=== PATIENT | male | born 1995 | race African-American/Black ===

== ENCOUNTER 2023-06-17 17:02 | Emergency (ER) | payer MEDICAID ==
[~2023-06-17] VITALS: Ht 177.8 cm; Wt 118.0 kg
[2023-06-17 17:05] VITALS: O2SAT 98
[2023-06-17] MEDS: KETOROLAC 60MG/2ML VIAL IM ONE (17:36)
[2023-06-17] MEDS: OLANZAPINE 10MG TABLET PO SCH (17:37)
[2023-06-17 18:39] LABS: BASOPHILS % 0.4 % (0.0-2.0); EOSINOPHILS % 0.4 % (0.0-5.0); HEMATOCRIT. 45.2 % (42.0-52.0); HEMOGLOBIN. 15.6 g/dL (14.0-18.0); LYMPHOCYTES % 10.4 % (20.0-50.0); MEAN CORPUSCULAR HEMOGLOBIN 29.9 pg (28.0-32.0); MEAN CORPUSCULAR HGB CONC 34.6 g/dL (31.0-37.0); MEAN CORPUSCULAR VOLUME 86.4 fL (80.0-94.0); MEAN PLATELET VOLUME 8.7 fl (7.4-10.4); MONOCYTES % 9.9 % (2.0-8.0); NEUTROPHILS % 78.9 % (40.0-76.0); PLATELET 269 x1000/uL (130-400); RED BLOOD CELL COUNT 5.23 mill/uL (4.7-6.1); RED CELL DISTRIBUTION WIDTH 14.3 % (11.6-14.6); WHITE BLOOD COUNT 19.3 x1000/uL (4.5-11.0)
[2023-06-17 19:03] LABS: ACETAMINOPHEN < 2 ug/mL (10-30); ALANINE AMINOTRANSFERASE 75 IU/L (10-49); ALBUMIN 5.8 g/dL (3.2-4.8); ASPARTATE AMINOTRANSFERASE 331 IU/L (<34); BILIRUBIN TOTAL 1.3 mg/dL (0.1-1.0); CALCIUM 10.3 mg/dL (8.7-10.4); CARBON DIOXIDE 24 mEq/L (21-32); CHLORIDE 96 mEq/L (98-107); CREATININE 2.9 mg/dL (0.6-1.3); ETHANOL BLOOD < 10 mg/dL (<10); GLUCOSE 101 mg/dL (70-105); POTASSIUM 3.6 mEq/L (3.5-5.1); PROTEIN TOTAL 9.3 g/dL (6.0-8.3); SODIUM 131 mEq/L (136-145); UREA NITROGEN BLOOD 32 mg/dL (9-23)
[2023-06-17] MEDS: ZIPRASIDONE MESYLATE 20MG/VIAL IM ONE (21:30)
[2023-06-17 23:38] LABS: CLARITY URINE TURBID (CLEAR); COLOR URINE DARK YELLOW (YELLOW); GLUCOSE URINE NEGATIVE (NEGATIVE); KETONES URINE TRACE (NEGATIVE); LEUKOCYTE ESTERASE URINE TRACE (NEGATIVE); NITRITE URINE NEGATIVE (NEGATIVE); OCCULT BLOOD URINE 3+ (NEGATIVE); PH URINE 5.5 (4.5-8.0); PROTEIN URINE 2+ (NEGATIVE); SPECIFIC GRAVITY URINE 1.032 (1.005-1.030)
[2023-06-17 23:49] LABS: *AMPHETAMINES SCREEN URINE PRESUMPTIVE POSITIVE (NEGATIVE); *BARBITURATES SCREEN URINE NEGATIVE (NEGATIVE); *BENZODIAZEPINES SCREEN URINE NEGATIVE (NEGATIVE); *COCAINE SCREEN URINE NEGATIVE (NEGATIVE); CANNABINOID URINE SCREEN PRESUMPTIVE POSITIVE (NEGATIVE); ECSTASY MDMA SCREEN URINE CONF.TEST INDICATED (NEGATIVE); METHADONE URINE SCREEN Neg (NEGATIVE); OPIATES URINE SCREEN NEGATIVE (NEGATIVE); PHENCYCLIDINE URINE SCREEN NEGATIVE (NEGATIVE)
[2023-06-18 00:07] LABS: BACTERIA URINE 1+; SQUAMOUS EPITHELIAL CELL URINE 1+ /lpf (RARE/1+)
[2023-06-18] MEDS: SODIUM CHLORIDE 0.9% 1,000 ML IV ONE (01:14)
[2023-06-18] MEDS: CEFTRIAXONE 1GM/50ML 50 ML IV ONE (01:28)
[2023-06-18 06:24] VITALS: TEMP 98.2
[2023-06-18 07:40] LABS: BASOPHILS % 0.5 % (0.0-2.0); EOSINOPHILS % 0.9 % (0.0-5.0); HEMATOCRIT. 41.5 % (42.0-52.0); HEMOGLOBIN. 14.2 g/dL (14.0-18.0); LYMPHOCYTES % 18.2 % (20.0-50.0); MEAN CORPUSCULAR HEMOGLOBIN 29.9 pg (28.0-32.0); MEAN CORPUSCULAR HGB CONC 34.1 g/dL (31.0-37.0); MEAN CORPUSCULAR VOLUME 87.7 fL (80.0-94.0); MEAN PLATELET VOLUME 8.5 fl (7.4-10.4); MONOCYTES % 11.8 % (2.0-8.0); NEUTROPHILS % 68.6 % (40.0-76.0); PLATELET 218 x1000/uL (130-400); RED BLOOD CELL COUNT 4.74 mill/uL (4.7-6.1); RED CELL DISTRIBUTION WIDTH 14.5 % (11.6-14.6); WHITE BLOOD COUNT 10.5 x1000/uL (4.5-11.0)
[2023-06-18 08:07] LABS: ALANINE AMINOTRANSFERASE 72 IU/L (10-49); ASPARTATE AMINOTRANSFERASE 293 IU/L (<34); BILIRUBIN TOTAL 1.2 mg/dL (0.1-1.0); CALCIUM 9.2 mg/dL (8.7-10.4); CARBON DIOXIDE 26 mEq/L (21-32); CHLORIDE 101 mEq/L (98-107); CREATININE 1.7 mg/dL (0.6-1.3); GLUCOSE 94 mg/dL (70-105); POTASSIUM 3.4 mEq/L (3.5-5.1); PROTEIN TOTAL 7.9 g/dL (6.0-8.3); SODIUM 134 mEq/L (136-145); UREA NITROGEN BLOOD 29 mg/dL (9-23)
[2023-06-18] MEDS: ARIPIPRAZOLE 5MG TABLET PO SCH (11:40)
[2023-06-18 19:09] VITALS: BP 119/78; PULSE 97; RESP 16
[2023-06-18] MEDS ORDERED: OLANZAPINE 5MG TABLET ODT PO SCH (21:00)
== END 2023-06-18 19:33 ==
LOC: ER 17:02
DX: S00.31XA Abrasion of nose, initial encounter (principal); F23 Brief psychotic disorder; F31.9 Bipolar disorder, unspecified; Z20.822 Contact with and (suspected) exposure to COVID-19; X58.XXXA Exposure to other specified factors, initial encounter; Y93.89 Activity, other specified; Y92.89 Other specified places as the place of occurrence of the external cause; Y99.8 Other external cause status
CPT/HCPCS: 80053 ×2; 80305; 81003; 80307; 80329; 80320; 85025 ×2; 36415 ×2; 96372; 99285; 87426; 96365; J1885; J3486; Z7610 ×3; J0696; J7030; G0480

== ENCOUNTER 2023-09-04 17:28 | Emergency (ER) | payer MEDICAID ==
[~2023-09-04] VITALS: Ht 188 cm; Wt 137.0 kg
[2023-09-04] MEDS: MIDAZOLAM HCL 2 MG/2 ML VIAL IM ONE (17:58)
[2023-09-04] MEDS: HALOPERIDOL LACTATE 5MG/ML VIAL IM ONE (17:58)
[2023-09-04 18:45] VITALS: O2SAT 98
[2023-09-04 18:47] LABS: HEMATOCRIT. 42.3 % (42.0-52.0); HEMOGLOBIN. 14.5 g/dL (14.0-18.0); MEAN CORPUSCULAR HEMOGLOBIN 30.1 pg (28.0-32.0); MEAN CORPUSCULAR HGB CONC 34.3 g/dL (31.0-37.0); MEAN CORPUSCULAR VOLUME 87.7 fL (80.0-94.0); MEAN PLATELET VOLUME 8.5 fl (7.4-10.4); PLATELET 294 x1000/uL (130-400); RED BLOOD CELL COUNT 4.83 mill/uL (4.7-6.1); RED CELL DISTRIBUTION WIDTH 14.9 % (11.6-14.6); WHITE BLOOD COUNT 13.7 x1000/uL (4.5-11.0)
[2023-09-04 18:48] LABS: DIFFERENTIAL COMMENT 1
[2023-09-04 18:57] LABS: CHLORIDE 100 mEq/L (98-107); POTASSIUM 3.4 mEq/L (3.5-5.1); SODIUM 138 mEq/L (136-145)
[2023-09-04 18:58] LABS: CALCIUM 10.1 mg/dL (8.7-10.4); CARBON DIOXIDE 26 mEq/L (21-32)
[2023-09-04 19:03] LABS: CREATININE 1.8 mg/dL (0.6-1.3); GLUCOSE 109 mg/dL (70-105); UREA NITROGEN BLOOD 31 mg/dL (9-23)
[2023-09-04 19:04] LABS: ETHANOL BLOOD < 10 mg/dL (<10)
[2023-09-04 19:05] LABS: ACETAMINOPHEN < 2 ug/mL (10-30)
[2023-09-04] MEDS: TETANUS, DIPHTHERIA, PERTUSSIS VAC/PF 0.5ML (>10YR OLD) IM ONE (19:17)
[2023-09-04 19:24] LABS: ANISOCYTOSIS 1+; PLATELET ESTIMATE NORMAL
[2023-09-04 21:49] LABS: CLARITY URINE CLOUDY (CLEAR); COLOR URINE YELLOW (YELLOW); GLUCOSE URINE NEGATIVE (NEGATIVE); KETONES URINE 1+ (NEGATIVE); LEUKOCYTE ESTERASE URINE NEGATIVE (NEGATIVE); NITRITE URINE NEGATIVE (NEGATIVE); OCCULT BLOOD URINE NEGATIVE (NEGATIVE); PROTEIN URINE 1+ (NEGATIVE); SPECIFIC GRAVITY URINE 1.029 (1.005-1.030); UROBILINOGEN URINE 0.2 E.U./dL (0.2-1.0)
[2023-09-04 22:02] LABS: *AMPHETAMINES SCREEN URINE PRESUMPTIVE POSITIVE (NEGATIVE); *BARBITURATES SCREEN URINE NEGATIVE (NEGATIVE); *BENZODIAZEPINES SCREEN URINE PRESUMPTIVE POSITIVE (NEGATIVE); *COCAINE SCREEN URINE NEGATIVE (NEGATIVE); CANNABINOID URINE SCREEN NEGATIVE (NEGATIVE); ECSTASY MDMA SCREEN URINE CONF.TEST INDICATED (NEGATIVE); METHADONE URINE SCREEN NEGATIVE (NEGATIVE); OPIATES URINE SCREEN NEGATIVE (NEGATIVE); PHENCYCLIDINE URINE SCREEN NEGATIVE (NEGATIVE)
[2023-09-04 22:31] LABS: BACTERIA URINE 2+; RBC URINE 0-2 /hpf (0-2); SQUAMOUS EPITHELIAL CELL URINE FEW /lpf (RARE/1+); WBC URINE 0-2 /hpf (0-2)
[2023-09-04 22:32] LABS: HYALINE CASTS URINE 0-5 /lpf
[2023-09-05] MEDS: SULFAMETHOXAZOLE/TRIMETHOPRIM 800/160MG TABLET PO SCH (02:00)
[2023-09-05] MEDS: CEPHALEXIN 250MG CAPSULE PO SCH ×2 (02:00→08:51)
[2023-09-05] MEDS ORDERED: CEPHALEXIN 250MG CAPSULE PO SCH (06:30)
[2023-09-05 13:45] VITALS: BP 124/80; PULSE 72; RESP 18; TEMP 98
== END 2023-09-05 13:55 | disposition home or self-care (01) ==
LOC: ER 17:28
DX: S09.90XA Unspecified injury of head, initial encounter (principal); R45.1 Restlessness and agitation; F31.9 Bipolar disorder, unspecified; F20.9 Schizophrenia, unspecified; X58.XXXA Exposure to other specified factors, initial encounter; Y93.89 Activity, other specified; Y92.89 Other specified places as the place of occurrence of the external cause; Y99.8 Other external cause status; Z20.822 Contact with and (suspected) exposure to COVID-19
CPT/HCPCS: 80305; 80048; 81003; 80307; 80329; 80320; 85025; 36415; 70450; 90715; 20520; 90471; 96372; 99291; 87426; 73140; J1630; J2250; Z7610 ×3; G0480

== ENCOUNTER 2023-09-16 15:08 | Emergency (ER) | payer MEDICAID ==
[~2023-09-16] VITALS: Ht 182.9 cm; Wt 120.0 kg
[2023-09-16] MEDS: SODIUM CHLORIDE 0.9% 1,000 ML IV ONE (15:15)
[2023-09-16 16:38] LABS: BASOPHILS % 0.7 % (0.0-2.0); EOSINOPHILS % 0.2 % (0.0-5.0); HEMATOCRIT. 41.2 % (42.0-52.0); HEMOGLOBIN. 14.2 g/dL (14.0-18.0); LYMPHOCYTES % 10.8 % (20.0-50.0); MEAN CORPUSCULAR HEMOGLOBIN 30.3 pg (28.0-32.0); MEAN CORPUSCULAR HGB CONC 34.4 g/dL (31.0-37.0); MEAN CORPUSCULAR VOLUME 88.1 fL (80.0-94.0); MONOCYTES % 9.1 % (2.0-8.0); NEUTROPHILS % 79.2 % (40.0-76.0); PLATELET 320 x1000/uL (130-400); RED BLOOD CELL COUNT 4.68 mill/uL (4.7-6.1); RED CELL DISTRIBUTION WIDTH 14.5 % (11.6-14.6); WHITE BLOOD COUNT 13.4 x1000/uL (4.5-11.0)
[2023-09-16 16:41] LABS: CHLORIDE 99 mEq/L (98-107); POTASSIUM 3.4 mEq/L (3.5-5.1); SODIUM 138 mEq/L (136-145)
[2023-09-16 16:42] LABS: CALCIUM 10.1 mg/dL (8.7-10.4); CARBON DIOXIDE 24 mEq/L (21-32)
[2023-09-16] MEDS: HALOPERIDOL LACTATE 5MG/ML VIAL IM ONE (16:43)
[2023-09-16 16:47] LABS: CREATININE 1.6 mg/dL (0.6-1.3); GLUCOSE 75 mg/dL (70-105); UREA NITROGEN BLOOD 20 mg/dL (9-23)
[2023-09-16 16:55] LABS: PROTHROMBIN TIME 10.8 sec (9.6-11.0)
[2023-09-16 16:56] LABS: ETHANOL BLOOD < 10 mg/dL (<10)
[2023-09-16] MEDS: DIPHENHYDRAMINE 50MG/ML VIAL IV ONE (18:43)
[2023-09-16 19:23] VITALS: O2SAT 97
[2023-09-17] MEDS: ZIPRASIDONE MESYLATE 20MG/VIAL IM ONE (01:45)
[2023-09-17] MEDS: DIPHENHYDRAMINE 50MG/ML VIAL IM PRN (05:21)
[2023-09-17 09:55] LABS: CLARITY URINE TURBID (CLEAR); COLOR URINE YELLOW (YELLOW); GLUCOSE URINE NEGATIVE (NEGATIVE); KETONES URINE 1+ (NEGATIVE); LEUKOCYTE ESTERASE URINE NEGATIVE (NEGATIVE); NITRITE URINE NEGATIVE (NEGATIVE); OCCULT BLOOD URINE NEGATIVE (NEGATIVE); PH URINE 5.5 (4.5-8.0); PROTEIN URINE TRACE (NEGATIVE); SPECIFIC GRAVITY URINE 1.026 (1.005-1.030)
[2023-09-17 10:50] LABS: BACTERIA URINE 2+; MUCUS URINE TRACE /lpf (NONE/TRACE); RBC URINE 0-2 /hpf (0-2); SQUAMOUS EPITHELIAL CELL URINE NONE SEEN /lpf (RARE/1+); WBC URINE 0-2 /hpf (0-2); YEAST URINE NONE SEEN
[2023-09-17 10:51] LABS: HYALINE CASTS URINE 0-5 /lpf
[2023-09-17 11:21] LABS: *AMPHETAMINES SCREEN URINE PRESUMPTIVE POSITIVE (NEGATIVE)
[2023-09-17 11:22] LABS: *BARBITURATES SCREEN URINE NEGATIVE (NEGATIVE); *BENZODIAZEPINES SCREEN URINE PRESUMPTIVE POSITIVE (NEGATIVE); *COCAINE SCREEN URINE NEGATIVE (NEGATIVE); METHADONE URINE SCREEN NEGATIVE (NEGATIVE); OPIATES URINE SCREEN NEGATIVE (NEGATIVE)
[2023-09-17 11:23] LABS: CANNABINOID URINE SCREEN NEGATIVE (NEGATIVE); ECSTASY MDMA SCREEN URINE CONF.TEST INDICATED (NEGATIVE); PHENCYCLIDINE URINE SCREEN NEGATIVE (NEGATIVE)
[2023-09-17] MEDS: OLANZAPINE 5MG TABLET ODT PO SCH (15:29)
[2023-09-18 00:56] VITALS: BP 120/76; PULSE 104; RESP 20; TEMP 99.8
[2023-11-15] MEDS ORDERED: OLAN5TAB6 PO (15:16)
== END 2023-09-18 01:15 ==
LOC: ER 15:08
DX: R45.1 Restlessness and agitation (principal); I49.9 Cardiac arrhythmia, unspecified; Z86.59 Personal history of other mental and behavioral disorders
CPT/HCPCS: 80305; 80048; 81003; 80320; 85025; 85610; 36415; 93005; 96372 ×2; 96374; 99285; 87426; J1200 ×2; J1630; J7030; J3486; G0480

== ENCOUNTER 2023-10-07 15:28 | Emergency (ER) | payer MEDICAID ==
[~2023-10-07] VITALS: Ht 177.8 cm; Wt 98.0 kg
[2023-10-07 15:31] VITALS: O2SAT 97
[2023-10-07] MEDS: SODIUM CHLORIDE 0.9% 1,000 ML IV ONE (17:17)
[2023-10-07 17:30] LABS: BASOPHILS % 0.7 % (0.0-2.0); EOSINOPHILS % 0.3 % (0.0-5.0); HEMATOCRIT. 37.5 % (42.0-52.0); HEMOGLOBIN. 12.5 g/dL (14.0-18.0); LYMPHOCYTES % 12.5 % (20.0-50.0); MEAN CORPUSCULAR HEMOGLOBIN 30.2 pg (28.0-32.0); MEAN CORPUSCULAR HGB CONC 33.4 g/dL (31.0-37.0); MEAN CORPUSCULAR VOLUME 90.3 fL (80.0-94.0); MEAN PLATELET VOLUME 8.7 fl (7.4-10.4); MONOCYTES % 6.2 % (2.0-8.0); NEUTROPHILS % 80.3 % (40.0-76.0); PLATELET 235 x1000/uL (130-400); RED BLOOD CELL COUNT 4.15 mill/uL (4.7-6.1); WHITE BLOOD COUNT 11.2 x1000/uL (4.5-11.0)
[2023-10-07 17:37] LABS: CHLORIDE 106 mEq/L (98-107); POTASSIUM 3.6 mEq/L (3.5-5.1); SODIUM 142 mEq/L (136-145)
[2023-10-07 17:38] LABS: CALCIUM 8.8 mg/dL (8.7-10.4); CARBON DIOXIDE 30 mEq/L (21-32)
[2023-10-07 17:43] LABS: GLUCOSE 82 mg/dL (70-105); UREA NITROGEN BLOOD 13 mg/dL (9-23)
[2023-10-07 17:44] LABS: ALANINE AMINOTRANSFERASE 14 IU/L (10-49)
[2023-10-07 17:45] LABS: ACETAMINOPHEN < 2 ug/mL (10-30); ALBUMIN 3.9 g/dL (3.2-4.8); ASPARTATE AMINOTRANSFERASE 19 IU/L (<34); BILIRUBIN TOTAL 0.2 mg/dL (0.1-1.0); PROTEIN TOTAL 6.2 g/dL (6.0-8.3)
[2023-10-07 17:48] LABS: ETHANOL BLOOD < 10 mg/dL (<10)
[2023-10-07 20:06] LABS: CLARITY URINE CLEAR (CLEAR); COLOR URINE YELLOW (YELLOW); GLUCOSE URINE NEGATIVE (NEGATIVE); KETONES URINE NEGATIVE (NEGATIVE); LEUKOCYTE ESTERASE URINE NEGATIVE (NEGATIVE); NITRITE URINE NEGATIVE (NEGATIVE); OCCULT BLOOD URINE NEGATIVE (NEGATIVE); PH URINE 7.5 (4.5-8.0); PROTEIN URINE NEGATIVE (NEGATIVE); SPECIFIC GRAVITY URINE 1.017 (1.005-1.030)
[2023-10-07 20:27] LABS: *AMPHETAMINES SCREEN URINE PRESUMPTIVE POSITIVE (NEGATIVE); *BARBITURATES SCREEN URINE NEGATIVE (NEGATIVE); *BENZODIAZEPINES SCREEN URINE PRESUMPTIVE POSITIVE (NEGATIVE); CANNABINOID URINE SCREEN NEGATIVE (NEGATIVE); ECSTASY MDMA SCREEN URINE NEGATIVE (NEGATIVE); METHADONE URINE SCREEN NEGATIVE (NEGATIVE); OPIATES URINE SCREEN NEGATIVE (NEGATIVE); PHENCYCLIDINE URINE SCREEN NEGATIVE (NEGATIVE)
[2023-10-07 20:52] LABS: *COCAINE SCREEN URINE NEGATIVE (NEGATIVE)
[2023-10-08] MEDS ORDERED: OLANZAPINE 5MG TABLET ODT PO SCH (16:45)
[2023-10-08] MEDS: OLANZAPINE 5MG TABLET ODT PO SCH (18:50)
[2023-10-09 22:08] VITALS: BP 112/72; PULSE 84; RESP 14; TEMP 97.3
== END 2023-10-09 22:35 | disposition short-term general hospital (02) ==
LOC: ER 15:28
DX: R45.1 Restlessness and agitation (principal); I49.9 Cardiac arrhythmia, unspecified; R51.9 Headache, unspecified; Z20.822 Contact with and (suspected) exposure to COVID-19
CPT/HCPCS: 80053; 80305; 81003; 80307; 80329; 80320; 85025; 36415; 70450; 93005; 96360; 96361; 99285; 87426; J7030; Z7610 ×2; G0480

== ENCOUNTER 2023-11-03 19:25 | Emergency (ER) | payer MEDICAID ==
[~2023-11-03] VITALS: Ht 182.9 cm; Wt 120.0 kg
[2023-11-03 20:16] LABS: BASOPHILS % 0.7 % (0.0-2.0); EOSINOPHILS % 0.3 % (0.0-5.0); HEMATOCRIT. 38.6 % (42.0-52.0); HEMOGLOBIN. 12.9 g/dL (14.0-18.0); LYMPHOCYTES % 10.7 % (20.0-50.0); MEAN CORPUSCULAR HEMOGLOBIN 29.7 pg (28.0-32.0); MEAN CORPUSCULAR HGB CONC 33.5 g/dL (31.0-37.0); MEAN CORPUSCULAR VOLUME 88.7 fL (80.0-94.0); MEAN PLATELET VOLUME 8.5 fl (7.4-10.4); MONOCYTES % 7.2 % (2.0-8.0); NEUTROPHILS % 81.1 % (40.0-76.0); PLATELET 274 x1000/uL (130-400); RED BLOOD CELL COUNT 4.35 mill/uL (4.7-6.1); RED CELL DISTRIBUTION WIDTH 14.3 % (11.6-14.6); WHITE BLOOD COUNT 10.2 x1000/uL (4.5-11.0)
[2023-11-03 20:26] LABS: CHLORIDE 101 mEq/L (98-107); POTASSIUM 3.6 mEq/L (3.5-5.1); SODIUM 137 mEq/L (136-145)
[2023-11-03 20:27] LABS: CALCIUM 9.5 mg/dL (8.7-10.4); CARBON DIOXIDE 28 mEq/L (21-32)
[2023-11-03 20:32] LABS: CREATININE 1.3 mg/dL (0.6-1.3); GLUCOSE 85 mg/dL (70-105); UREA NITROGEN BLOOD 15 mg/dL (9-23)
[2023-11-03 20:34] LABS: ACETAMINOPHEN < 2 ug/mL (10-30)
[2023-11-03 20:35] LABS: ETHANOL BLOOD < 10 mg/dL (<10)
[2023-11-03] MEDS: TETANUS, DIPHTHERIA, PERTUSSIS VAC/PF 0.5ML (>10YR OLD) IM ONE (22:26)
[2023-11-04] MEDS: LORAZEPAM 2MG/ML INJ IM ONE (00:24)
[2023-11-04] MEDS: DIPHENHYDRAMINE 50MG/ML VIAL IM ONE (00:24)
[2023-11-04] MEDS: HALOPERIDOL LACTATE 5MG/ML VIAL IM ONE (00:24)
[2023-11-04] MEDS: MIDAZOLAM HCL 2 MG/2 ML VIAL IM ONE (01:57)
[2023-11-04 18:42] LABS: CLARITY URINE CLEAR (CLEAR); COLOR URINE DARK YELLOW (YELLOW); GLUCOSE URINE NEGATIVE (NEGATIVE); KETONES URINE TRACE (NEGATIVE); LEUKOCYTE ESTERASE URINE NEGATIVE (NEGATIVE); NITRITE URINE NEGATIVE (NEGATIVE); OCCULT BLOOD URINE NEGATIVE (NEGATIVE); PROTEIN URINE TRACE (NEGATIVE); SPECIFIC GRAVITY URINE 1.031 (1.005-1.030)
[2023-11-04 18:50] LABS: *AMPHETAMINES SCREEN URINE PRESUMPTIVE POSITIVE (NEGATIVE); *BENZODIAZEPINES SCREEN URINE PRESUMPTIVE POSITIVE (NEGATIVE)
[2023-11-04 18:51] LABS: *BARBITURATES SCREEN URINE NEGATIVE (NEGATIVE); *COCAINE SCREEN URINE NEGATIVE (NEGATIVE); CANNABINOID URINE SCREEN NEGATIVE (NEGATIVE); ECSTASY MDMA SCREEN URINE NEGATIVE (NEGATIVE); METHADONE URINE SCREEN NEGATIVE (NEGATIVE); OPIATES URINE SCREEN NEGATIVE (NEGATIVE); PHENCYCLIDINE URINE SCREEN NEGATIVE (NEGATIVE)
[2023-11-04 19:00] LABS: BACTERIA URINE NONE SEEN; RBC URINE 0-2 /hpf (0-2); SQUAMOUS EPITHELIAL CELL URINE RARE /lpf (RARE/1+); WBC URINE 0-2 /hpf (0-2)
[2023-11-05 13:16] VITALS: BP 133/71; PULSE 80; RESP 18; TEMP 98.2
[2023-11-15] MEDS ORDERED: OLAN5TAB6 PO (15:16)
== END 2023-11-05 13:59 ==
LOC: ER 19:25
DX: R45.1 Restlessness and agitation (principal); S80.212A Abrasion, left knee, initial encounter; F15.10 Other stimulant abuse, uncomplicated; R51.9 Headache, unspecified; Z86.59 Personal history of other mental and behavioral disorders; Z20.822 Contact with and (suspected) exposure to COVID-19; X58.XXXA Exposure to other specified factors, initial encounter; Y93.89 Activity, other specified; Y92.89 Other specified places as the place of occurrence of the external cause; Y99.8 Other external cause status
CPT/HCPCS: 80305; 80048; 81003; 80307; 80329; 80320; 85025; 36415; 71045; 73562; 70450; 99291; 87426; 96372; J1200; J1630; J2060 ×2; J2250; G0480